=== PATIENT | female | born 1975 | race Caucasian/White ===

== ENCOUNTER 2020-07-05 13:14 | Emergency (ER) | payer OTHER, MEDICARE ==
[~2020-07-05] VITALS: Ht 170.2 cm; Wt 54.4 kg
[2020-07-05 13:54] LABS: BASOPHILS % (AUTO) 1 % (0-1); EOSINOPHILS % (AUTO) 2 % (1-7); LYMPHOCYTES % (AUTO) 26 % (22-44); MEAN CORPUSCULAR HEMOGLOBIN 32.3 pg (27.0-34.8); MEAN CORPUSCULAR HGB CONC 34.2 g/dL (32.4-35.8); MEAN PLATELET VOLUME 8.7 fL (7.4-10.4); MONOCYTES % (AUTO) 5 % (2-9); NEUTROPHILS % (AUTO) 66 % (42-75); PLATELET COUNT 240 x10^3/uL (130-400)
[2020-07-05 13:58] LABS: ALANINE AMINOTRANSFERASE 17 U/L (12-78); ALBUMIN 4.3 g/dL (3.4-5.0); ANION GAP 3 mmol/L (5-15); CALCIUM 9.4 mg/dL (8.5-10.1); CHLORIDE 101 mmol/L (98-107); CREATININE 0.77 mg/dL (0.55-1.02)
[2020-07-05 14:02] LABS: ALKALINE PHOSPHATASE 81 U/L (45-117); BILIRUBIN,TOTAL 0.6 mg/dL (0.2-1.0); TOTAL PROTEIN 7.7 g/dL (6.4-8.2); TROPONIN I < 0.015 ng/mL (0.000-0.045)
[2020-07-05 14:14] LABS: MD NO
--- NOTE | 2020-07-05 14:38 | NUR ---
PT HAS BEEN HAVING CHEST PAINS INTO SHOULDER AND NECK, ONGOING AFTER PICC LINE HAS BEEN PLACED END OF MAY. DENIES N/V. PICC LINE IS FOR NUTRITION.
[2020-07-05 14:42] VITALS: BP 139/68
--- NOTE | 2020-07-05 16:07 | NUR ---
Patient/Caregiver given discharge instructions and they have confirmed that they understand the instructions. Patient ambulatory with steady gait.
--- NOTE | 2020-07-05 16:08 | NUR ---
THIS FLOAT RN AT BEDSIDE TO DC PT FOR PRIMARY RN, SANDRA. PT VERBALIZED UNDERSTANDING TO DC INSTRUCTIONS. AMBULATORY TO CHECKOUT C STEADY GAIT. VSS.
== END 2020-07-05 16:08 | disposition home or self-care (01) ==
LOC: ED 15:14
DX: R07.89 Other chest pain (principal); E87.1 Hypo-osmolality and hyponatremia; I51.7 Cardiomegaly
CPT/HCPCS: 36415; 71045; 80053; 84484; 85025; 93005; 99285

== ENCOUNTER 2020-08-11 09:32 | Emergency (ER) | payer OTHER, MEDICARE ==
[~2020-08-11] VITALS: Ht 170.2 cm; Wt 56.0 kg
[2020-08-11 09:36] VITALS: BP 125/78
[2020-08-11] MEDS ORDERED: ACETAMINOPHEN 325 MG TABLET PO ONE (10:00)
[2020-08-11] MEDS ORDERED: DIAZEPAM 5 MG TABLET PO ONE (10:00)
[2020-08-11 10:30] LABS: BASOPHILS % (AUTO) 1 % (0-1); EOSINOPHILS % (AUTO) 1 % (1-7); LYMPHOCYTES % (AUTO) 20 % (22-44); MEAN CORPUSCULAR HEMOGLOBIN 31.8 pg (27.0-34.8); MEAN PLATELET VOLUME 9.2 fL (7.4-10.4); MONOCYTES % (AUTO) 7 % (2-9); NEUTROPHILS % (AUTO) 71 % (42-75); PLATELET COUNT 238 x10^3/uL (130-400); RED BLOOD COUNT 4.56 x10^6/uL (3.82-5.3); RED CELL DISTRIBUTION WIDTH 13.5 % (9.6-15.2)
[2020-08-11 10:31] LABS: MD NO
[2020-08-11 10:38] LABS: ANION GAP 3 mmol/L (5-15); CALCIUM 9.5 mg/dL (8.5-10.1); CHLORIDE 102 mmol/L (98-107); CREATININE 0.85 mg/dL (0.55-1.02)
[2020-08-11] MEDS ORDERED: DIAZEPAM 5 MG TABLET ONE (11:04)
[2020-08-11] MEDS ORDERED: ACETAMINOPHEN 325 MG TABLET ONE (11:05)
== END 2020-08-11 11:44 | disposition home or self-care (01) ==
LOC: ED 10:00
DX: M54.12 Radiculopathy, cervical region (principal); R25.2 Cramp and spasm; R00.0 Tachycardia, unspecified; I51.7 Cardiomegaly; Z88.2 Allergy status to sulfonamides; Z88.8 Allergy status to other drugs, medicaments and biological substances; Z88.6 Allergy status to analgesic agent
CPT/HCPCS: 36415; 72125; 80048; 85025; 93005; 99285

== ENCOUNTER 2021-04-21 14:51 | Inpatient (IN) | payer MEDICAID, MEDICARE, OTHER ==
[~2021-04-21] VITALS: Ht 170.2 cm; Wt 56.7 kg
[2021-04-21 15:28] LABS: BASOPHILS % (AUTO) 0 % (0-1); EOSINOPHILS % (AUTO) 3 % (1-7); LYMPHOCYTES % (AUTO) 17 % (22-44); MEAN CORPUSCULAR HEMOGLOBIN 31.8 pg (27.0-34.8); MEAN CORPUSCULAR HGB CONC 34.6 g/dL (32.4-35.8); MEAN PLATELET VOLUME 8.4 fL (7.4-10.4); MONOCYTES % (AUTO) 5 % (2-9); NEUTROPHILS % (AUTO) 74 % (42-75); PLATELET COUNT 254 x10^3/uL (130-400); RED BLOOD COUNT 4.58 x10^6/uL (3.82-5.3); RED CELL DISTRIBUTION WIDTH 14.4 % (9.6-15.2)
[2021-04-21 15:39] LABS: ALANINE AMINOTRANSFERASE 21 U/L (12-78); ALBUMIN 3.7 g/dL (3.4-5.0); ANION GAP 7 mmol/L (5-15); CALCIUM 9.4 mg/dL (8.5-10.1); CHLORIDE 99 mmol/L (98-107)
[2021-04-21 15:41] LABS: ALKALINE PHOSPHATASE 112 U/L (45-117); BILIRUBIN,TOTAL 0.4 mg/dL (0.2-1.0); TOTAL PROTEIN 8.2 g/dL (6.4-8.2)
--- NOTE | 2021-04-21 16:15 | NUR ---
sleeve bottom feller note: Pt to room from lobby.
--- NOTE | 2021-04-21 16:17 | NUR ---
Pt tearful, hunched over walks to room 2, pt says she had CT at [facility] today but left AMA.
--- NOTE | 2021-04-21 16:19 | NUR ---
Dr Cordero at bedside for evaluation. Pt given urine cup, requested sample.
[2021-04-21] MEDS ORDERED: MORPHINE SULFATE 4 MG/ML, 1ML ONE ×2 (16:28→19:02)
[2021-04-21] MEDS ORDERED: METOCLOPRAMIDE 5 MG/ML, 2ML ONE (16:28)
[2021-04-21] MEDS ORDERED: DIPHENHYDRAMINE 50 MG/ML, 1ML ONE (16:28)
[2021-04-21] MEDS ORDERED: METOCLOPRAMIDE 5 MG/ML, 2ML IVPush ONE (16:30)
[2021-04-21] MEDS ORDERED: MORPHINE SULFATE 4 MG/ML, 1ML IVPush ONE ×2 (16:30→19:00)
[2021-04-21] MEDS ORDERED: DIPHENHYDRAMINE 50 MG/ML, 1ML IVPush ONE (16:30)
--- NOTE | 2021-04-21 16:39 | NUR ---
Medicated per order through right PICC line, flushes well. On cont pulse ox, side rails up, bed low, call winkler in reach. Will continue to monitor.
--- NOTE | 2021-04-21 16:52 | NUR ---
Sleeping, RR equal and unlabored wakes up with verbal says pain has decreased.
--- NOTE | 2021-04-21 17:32 | NUR ---
Sleeping, RR equal and unlabored. VSS, will continue to monitor.
--- NOTE | 2021-04-21 18:19 | NUR ---
Went to revitalize pt, pt woke up and requested more pain medications. Says abd pain returned 05/25. VSS. Informed ERP.
--- NOTE | 2021-04-21 18:34 | NUR ---
Requested urine sample from patient again.
--- NOTE | 2021-04-21 18:56 | NUR ---
rEPORT TO NEFTALY COLON
--- NOTE | 2021-04-21 19:02 | NUR ---
FIRST CONTACT WITH PATIENT. RN TO BEDSIDE TO ADMIN PAIN MEDS. PATIENT REQUESTING NAUSEA MEDS. ADVISED PATIENT WILL ASK MD HE ONLY ORDERED PAIN MEDS. PATIENT DENIES ANY OTHER NEEDS AT THIS TIME. NAD. VSS. CALL DOVER IN REACH. WILL CONTINUE TO MONITOR.
[2021-04-21 19:12] LABS: MICROSCOPIC NOT IND
[2021-04-21] MEDS ORDERED: PROMETHAZINE 25 MG/ML, 1ML IM ONE (20:00)
--- NOTE | 2021-04-21 20:23 | NUR ---
[id number] MOSES STATES HE WILL CALL ME BACK AFTER HIS MED PASS.
[2021-04-21] MEDS: HEPARIN 5,000 UNITS/ML, 1ML SQ SCH (20:30)
--- NOTE | 2021-04-21 20:39 | NUR ---
REPORT GIVEN TO DARLENE LOPES.
--- NOTE | 2021-04-21 20:58 | NUR ---
HOSPITALIST AT BEDSIDE
[2021-04-21] MEDS: ONDANSETRON 2MG/ML, 2ML IVPush PRN (21:28)
[2021-04-21] MEDS: HYDROmorphone 2 MG/ML, 1ML IVPush PRN ×3 (21:29→22:36)
[2021-04-21 21:33] VITALS: BP 154/9
[2021-04-21] MEDS: SODIUM CHLORIDE 0.9% 1,000 ML IV SCH (21:55)
[2021-04-22] MEDS: HYDROmorphone 2 MG/ML, 1ML IVPush PRN ×8 (02:01→22:03)
[2021-04-22 02:11] VITALS: BP 128/84
[2021-04-22] MEDS ORDERED: ONDA4TAB7 PO (02:13)
[2021-04-22] MEDS ORDERED: OCTR100D SQ (02:13)
[2021-04-22] MEDS ORDERED: OXYC-306 PO (02:13)
[2021-04-22] MEDS ORDERED: OPIU10TI2 PO (02:13)
[2021-04-22] MEDS ORDERED: ALBU0.63 IH (02:23)
[2021-04-22] MEDS ORDERED: ALPR0.25 PO (02:23)
[2021-04-22] MEDS ORDERED: MEGE20TA3 PO (02:23)
[2021-04-22] MEDS ORDERED: DIPH1TAB PO (02:23)
[2021-04-22] MEDS ORDERED: PROMETHAZINE 25 MG/ML, 1ML ONE (02:28)
[2021-04-22] MEDS: HEPARIN 5,000 UNITS/ML, 1ML SQ SCH ×3 (04:16→20:29)
[2021-04-22] MEDS: ONDANSETRON 2MG/ML, 2ML IVPush PRN (05:59)
[2021-04-22] MEDS: SODIUM CHLORIDE 0.9% 1,000 ML IV SCH (07:15)
[2021-04-22 07:22] VITALS: BP 107/65
[2021-04-22] MEDS ORDERED: ALBUTEROL HFA 90 MCG/SPRAY INH PRN (11:30)
[2021-04-22] MEDS ORDERED: TPN PER PHARMACY MC SCH (12:00)
[2021-04-22 12:25] LABS: BASOPHILS % (AUTO) 1 % (0-1); EOSINOPHILS % (AUTO) 4 % (1-7); LYMPHOCYTES % (AUTO) 30 % (22-44); MEAN CORPUSCULAR HEMOGLOBIN 31.1 pg (27.0-34.8); MEAN CORPUSCULAR HGB CONC 33.7 g/dL (32.4-35.8); MEAN PLATELET VOLUME 8.3 fL (7.4-10.4); MONOCYTES % (AUTO) 6 % (2-9); NEUTROPHILS % (AUTO) 59 % (42-75); PLATELET COUNT 225 x10^3/uL (130-400); RED BLOOD COUNT 4.16 x10^6/uL (3.82-5.3); RED CELL DISTRIBUTION WIDTH 14.2 % (9.6-15.2)
[2021-04-22 12:35] LABS: ALANINE AMINOTRANSFERASE 19 U/L (12-78); ALBUMIN 3.1 g/dL (3.4-5.0); ANION GAP 5 mmol/L (5-15); CALCIUM 8.7 mg/dL (8.5-10.1); CHLORIDE 103 mmol/L (98-107); CREATININE 0.59 mg/dL (0.55-1.02)
[2021-04-22 12:37] LABS: ALKALINE PHOSPHATASE 91 U/L (45-117); BILIRUBIN,TOTAL 0.7 mg/dL (0.2-1.0); TOTAL PROTEIN 7.1 g/dL (6.4-8.2)
[2021-04-22 12:43] LABS: PREALBUMIN 17.3 mg/dL (20.0-40.0)
[2021-04-22] MEDS ORDERED: FILTER, DISP 1.2 MICRON FOR TPN/PVN IV PRN (13:30)
[2021-04-22 13:56] VITALS: BP 148/77
[2021-04-22] MEDS ORDERED: SODIUM CHLORIDE 0.9% 1,000 ML IV SCH (14:00)
[2021-04-22] MEDS ORDERED: AMINO ACID 10% IV SCH ×2 (17:00→17:30)
[2021-04-22] MEDS ORDERED: [UNRECOGNIZED DRUG - OTHER] IV SCH (17:00)
[2021-04-22] MEDS ORDERED: DEXTROSE 70% IV SCH ×2 (17:00→17:30)
[2021-04-22] MEDS ORDERED: DEXTROSE 50%, 50ML SYRINGE IVPush PRN (17:00)
[2021-04-22] MEDS ORDERED: STERILE WATER IV SCH ×2 (17:00→17:30)
[2021-04-22] MEDS ORDERED: DEXTROSE 10% 500 ML IV PRN (17:00)
[2021-04-22] MEDS ORDERED: [UNRECOGNIZED DRUG - OTHER] IV SCH (17:30)
[2021-04-22 18:44] VITALS: BP 121/89
[2021-04-22] MEDS: INSULIN REGULAR LOW DOSE Q6H X 48HRS SQ-INSULIN SCH (20:29)
[2021-04-22 23:15] LABS: MICROSCOPIC AUTO
[2021-04-22 23:26] LABS: AMPHETAMINE SCREEN, URINE Negative (Negative); BARBITURATE SCREEN, URINE Negative (Negative); BENZODIAZEPINE SCREEN, URINE Negative (Negative)
[2021-04-22 23:36] LABS: CANNABINOID SCREEN, URINE Negative (Negative); COCAINE SCREEN, URINE Negative (Negative); METHADONE SCREEN, URINE Negative (Negative); OPIATE SCREEN, URINE Positive (Negative)
[2021-04-23 01:38] VITALS: BP 129/82
[2021-04-23] MEDS: HYDROmorphone 2 MG/ML, 1ML IVPush PRN ×4 (02:30→10:47)
[2021-04-23] MEDS: INSULIN REGULAR LOW DOSE Q6H X 48HRS SQ-INSULIN SCH ×2 (03:00→09:00)
[2021-04-23] MEDS: HEPARIN 5,000 UNITS/ML, 1ML SQ SCH ×2 (04:01→11:37)
[2021-04-23 05:12] LABS: BASOPHILS % (AUTO) 1 % (0-1); EOSINOPHILS % (AUTO) 3 % (1-7); LYMPHOCYTES % (AUTO) 35 % (22-44); MEAN CORPUSCULAR HEMOGLOBIN 31.1 pg (27.0-34.8); MEAN CORPUSCULAR HGB CONC 33.7 g/dL (32.4-35.8); MEAN PLATELET VOLUME 8.3 fL (7.4-10.4); MONOCYTES % (AUTO) 8 % (2-9); NEUTROPHILS % (AUTO) 54 % (42-75); PLATELET COUNT 220 x10^3/uL (130-400); RED BLOOD COUNT 3.93 x10^6/uL (3.82-5.3); RED CELL DISTRIBUTION WIDTH 14.1 % (9.6-15.2)
[2021-04-23 05:22] LABS: ALBUMIN 3.1 g/dL (3.4-5.0); ANION GAP 6 mmol/L (5-15); CALCIUM 8.8 mg/dL (8.5-10.1); CHLORIDE 104 mmol/L (98-107)
[2021-04-23 05:26] LABS: ALANINE AMINOTRANSFERASE 17 U/L (12-78); ALKALINE PHOSPHATASE 81 U/L (45-117); BILIRUBIN,TOTAL 0.6 mg/dL (0.2-1.0); CREATININE 0.47 mg/dL (0.55-1.02); TOTAL PROTEIN 6.7 g/dL (6.4-8.2); TRIGLYCERIDES 141 mg/dL (50-200)
[2021-04-23 07:57] VITALS: BP 127/85
[2021-04-23] MEDS ORDERED: HYDROmorphone 1 MG/ML, 1ML INJ IV ONE (11:00)
[2021-04-23] MEDS ORDERED: HYDROmorphone PCA 30 MG/30 ML IV PRN (12:00)
[2021-04-23 13:57] VITALS: BP 127/88
[2021-04-23] MEDS ORDERED: [UNRECOGNIZED DRUG - OTHER] IV SCH (17:00)
[2021-04-23] MEDS ORDERED: STERILE WATER IV SCH ×2 (17:00)
[2021-04-23] MEDS ORDERED: [UNRECOGNIZED DRUG - OTHER] IV SCH (17:00)
[2021-04-23] MEDS ORDERED: DEXTROSE 70% IV SCH ×2 (17:00)
[2021-04-23] MEDS ORDERED: AMINO ACID 10% IV SCH ×2 (17:00)
[2021-04-24] MEDS ORDERED: INSULIN REGULAR LOW DOSE QDAY SQ-INSULIN SCH ×2 (09:00→21:00)
== END 2021-04-23 14:20 | disposition left against medical advice (07) | DRG 388 ==
LOC: ED 15:00 → EDIP 20:05 → 4NE 20:44
PROVIDERS: ADMIT Internal Medicine; ATTEND Family Medicine
DX: K56.600 Partial intestinal obstruction, unspecified as to cause (principal); E43 Unspecified severe protein-calorie malnutrition; E87.1 Hypo-osmolality and hyponatremia; Z68.1 Body mass index [BMI] 19.9 or less, adult; F17.210 Nicotine dependence, cigarettes, uncomplicated; Z53.29 Procedure and treatment not carried out because of patient's decision for other reasons; Z82.3 Family history of stroke; Z90.710 Acquired absence of both cervix and uterus; Z88.2 Allergy status to sulfonamides; Z88.8 Allergy status to other drugs, medicaments and biological substances; Z88.1 Allergy status to other antibiotic agents; Z79.899 Other long term (current) drug therapy
CPT/HCPCS: 36415; 96374; 96375; 99285; 99291; J3475; 71045; 80053; 80307; 81001; 81003; 82962; 83605; 83690; 83735; 84100; 84134; 84478; 85025; 93005; G0378; J0610; J1170; J2405; J2550; J3480; J1200; J1644; J1720; J2270; J2765; J3420; J7030